=== PATIENT | female | born 1950 | race African-American/Black ===

== ENCOUNTER 2017-05-24 11:23 | Emergency (ER) | payer OTHER ==
[~2017-05-24] VITALS: Ht 157.5 cm; Wt 67.6 kg
== END 2017-05-24 12:50 | disposition home or self-care (01) ==
LOC: CED 11:23
DX: M25.542 Pain in joints of left hand (principal); M25.541 Pain in joints of right hand; J44.9 Chronic obstructive pulmonary disease, unspecified; J45.909 Unspecified asthma, uncomplicated; K21.9 Gastro-esophageal reflux disease without esophagitis; I10 Essential (primary) hypertension; F17.210 Nicotine dependence, cigarettes, uncomplicated
CPT/HCPCS: 99283